=== PATIENT | male | born 2000 | race Hispanic/Latino ===

== ENCOUNTER 2024-06-24 06:47 | Emergency (ER) | payer SELFPAY ==
[2024-06-24] MEDS ORDERED: Lidocaine 1% PF 5 ML VIAL ONE (07:07)
[2024-06-24] MEDS ORDERED: cefTRIAXone (ROCEPHIN) 500 MG VIAL ONE (07:07)
[2024-06-24 08:15] LABS: Bilirubin Negative (Negative); Blood, Urine Negative (Negative); CAUTI Indications for Culture Dysuria,urgency,freq; Clarity Clear (Clear); Glucose, Urine (Dipstick) Normal (Negative); Ketone, Urine Negative (Negative); Leukocyte 75 Leu/uL (Negative); Nitrite Negative (Negative); Protein, Urine (Dipstick) Negative (Neg-Trace); RBC/HPF 0-3 HPF (0-3); Specific Gravity, Urine 1.017 (1.002-1.036); Squamous Epithelial None Seen HPF (0-3); Urobilinogen Normal mg/dL (Less than 2); WBC/HPF 21-50 HPF (0-3); pH, Urine 5.5 (5.0-9.0)
[2024-06-24 08:16] LABS: Bacteria/HPF 1+ HPF (None Seen)
[2024-06-24 08:17] LABS: Urine Culture Reflex Yes Yes
[2024-06-25 05:01] LABS: Chlam.trachomatis by PCR,Urine DETECTED (NotDetected); GC N.gonorrhoeae PCR,UrineVOID Not Detected (NotDetected)
== END 2024-06-24 09:10 | disposition home or self-care (01) ==
LOC: ERS 06:47
DX: N39.0 Urinary tract infection, site not specified (principal); F17.210 Nicotine dependence, cigarettes, uncomplicated; Z55.6 Problems related to health literacy; Z75.8 Other problems related to medical facilities and other health care
CPT/HCPCS: 81001; 87086; 87491; 87591; 96372; 99283; J0696